=== PATIENT | male | born 1945 | race Caucasian/White ===

== ENCOUNTER 2021-07-24 05:54 | Inpatient (IN) | payer MEDICARE, OTHER ==
[~2021-07-24] VITALS: Ht 172.7 cm; Wt 67.0 kg
[~2021-07-24 05:54] MED LIST: AMLODIPINE BESY10 MG PO; ASPIRIN EC325 MG PO; ATORVASTATIN CA80 MG PO; HYDROCODON-ACE1 EA10 PO; HYDROXYZINE HCL10 MG PO; LISINOPRIL10 MG PO
--- OUTSIDE RECORDS SUMMARY | 2021-07-24 05:56 | XMS ---
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 Young has no Care Guidelines for this patient. EJulia VISIT COUNT (12 MO.) 2 TERE Ferris TOTAL 2 NOTE: Visits indicate total known visits. ED/UCC VISIT TRACKING (12 MO.) 07/24/2021 05:55 [facility] [place] TYPE: Emergency COMPLAINT: - SHOULDER PAIN 06/12/2021 12:51 [facility] [place] TYPE: Emergency COMPLAINT: - POSS STROKE INPATIENT VISIT TRACKING (12 MO.) 06/12/2021 12:52 [facility] [place] TYPE: Observation COMPLAINT: - HYPOTENSION DIAGNOSES: - Personal history of transient ischemic attack (TIA), and cerebral infarction without residual deficits - Hypotension, unspecified - Unspecified abdominal hernia with obstruction, without gangrene - Fecal impaction - Exposure to other specified factors, subsequent encounter - Unspecified fracture of shaft of left fibula, subsequent encounter for closed fracture with routine healing - Metabolic encephalopathy - Allergy status to other drugs, medicaments and biological substances - Allergy status to penicillin - COVID-19 - Unspecified fracture of shaft of left tibia, subsequent encounter for closed fracture with routine healing [email or web address]
--- NOTE | 2021-07-24 13:30 | NUR ---
PT ADMITTED TO [facility] FROM THE ER FOR LLL PNUEMONIA, PT FLAGGED FOR SEPSIS, CULTURES DRAWN PENDING, NEED A SPUTUM SAMPLE, SCD PLACED ON PT, PT CURRENTLY RESIDES AT [facility] WHEEL CHAIR BOUND, L HAND CONTRACTURE, [place] USING WHITE BOARD TO COMMUNICATE , IV FLUIDS HOOKED UP PER ORDER.
--- NOTE | 2021-07-24 14:47 | NUR ---
THIS RN TO TO ROOM TO ASSIST WITH BLOOD CLUTURE DRAW PER PTS PRIMARY RN'S REQUEST. 10ML LAB DRAW WITH 25G BUTTER FLY NEEDLE TO RIGHT FORARM. PT TOLERATED PROCEEDURE WELL. GAUZE AND TAPE APPLIED. IV ABX STARTED (SEE AUG). IF FLUIDS STARTED. PT REQUESTS FOOD. CLEAR LIQUID DIET EXPLAINED. PT REQUESTS JUICE. JUICE GIVEN THICKENED TO MODERATLY THICK. NO COUGH OR THROAT CLEARING NOTED WITH THICKENED LIQUIDS. PT RESTING IN BED WATCHING TV. HEAD OF BED ELEVATED TO 32 DEGREES. BEDR AILS UP. BED ALARM ON. CALL ROSEMARIE MURDOCK. PTS PRIMARY RN UPDATED.
[2021-07-24] MEDS ORDERED: LEVEMIR100 UNIT/1 SUB-Q (14:58)
[2021-07-24] MEDS ORDERED: ASCORBIC ACID500 M3 PO (15:03)
[2021-07-24] MEDS ORDERED: VITAMIN D325 MCG PO (15:05)
[2021-07-24] MEDS ORDERED: ANECREAM5 GM TOP (15:05)
[2021-07-24] MEDS ORDERED: ONE-DAILY MULT1 EAC1 PO (15:06)
[2021-07-24] MEDS ORDERED: LISINOPRIL30 MG PO (15:06)
[2021-07-24] MEDS ORDERED: POLYETHYLENE GL17 GM PO (15:07)
[2021-07-24] MEDS ORDERED: COLACE100 MG PO (15:07)
[2021-07-24] MEDS ORDERED: ARTHRITIS PAIN150 GM TOP (15:08)
[2021-07-24] MEDS ORDERED: GERI-KOT8.6 MG PO (15:08)
[2021-07-24] MEDS ORDERED: HYDROCODON-ACE1 EA10 PO (15:09)
[2021-07-24] MEDS ORDERED: BISACODYL10 MG PR (15:09)
--- NOTE | 2021-07-24 15:10 | NUR ---
PTS HOME MEDICATIONS UPDATED DR WHITE UPDATED REGARDING UPDATED MEDICATIONS. NEW ORDERS PLACED. RESEARCH AND EVALUATION MANAGER AND PTS RN UPDATED.
[2021-07-24] MEDS ORDERED: HYDROXYZINE HCL10 MG PO (16:28)
--- NOTE | 2021-07-24 16:28 | NUR ---
Medications reconciled using MARS from facility
--- NOTE | 2021-07-24 16:30 | NUR ---
RN IN ROOM TO ROUND ON PT, INCONTINENT OF URINE LARGE AMOUNT NEW DEPENDS PLACED, TURNED ON TO L SIDE, NO OTHER NEEDS
--- NOTE | 2021-07-24 18:30 | NUR ---
PT REQUESTING FOOD, DR WHITE ROUNDING ON FLOOR ASKED IF WE COULD UPGRADE DIET, NO TOLERATING CLEARS NO N/V , DR WHITE TO ADJUST ORDERS
--- NOTE | 2021-07-24 19:50 | NUR ---
RECEIVED REPORT FROM DAY SHIFT RN. PATIENT IS RESTING IN BED WATCHING TV. NO FURTHER NEEDS NOTED. CALL LIGHT IN REACH.
--- NOTE | 2021-07-24 21:41 | NUR ---
PT CALLED ASKING FOR HIS LEGS TO BE REPOSITIONED. ALSO ASSISTED PT TO INCREASE VOLUME ON THE TV. PT DENIES FURTHER NEEDS. CALL LIGHT IS CLOSE.
--- NOTE | 2021-07-24 21:58 | NUR ---
PATIENT ASSESMENT COMPLETED. PATIENTS ATTEND CHANGED PATIENT WAS INCONTINENT OF URINE. PATIENTS SCHEDULED MEDICATIONS GIVEN PER ORDER. PATIENT GIVEN PRN TYLENOL PER ORDER FOR PAIN "ALL OVER". PATIENT REPOSITIONED IN BED. PATIENT FED JELLO BY REEL CUTTER. PATIENT PROVIDED SIPS OF WATER. NO FURTHER NEEDS NOTED. CALL LIGHT IN REACH. BED ALARM ON FOR SAFETY.
--- NOTE | 2021-07-24 22:32 | NUR ---
PT CALLED ASKING FOR FOOD. USED WHITEBOARD TO COMMUNICATE. FED PT 1/2 CUP OF JELLO AND SHE SAYS HE IS DONE. PT DENIES FURTHER NEEDS. CALL LIGHT IS CLOSE.
--- NOTE | 2021-07-24 23:35 | NUR ---
PATIENT IS RESTING IN BED WITH EYES CLOSED, RR 27. CALL LIGHT IN REACH.
--- NOTE | 2021-07-25 02:32 | NUR ---
PATIENTS VITALS TAKEN AND RECORDED. PATIENTS ATTEND CHANGED AND JOSHUA CARE COMPLETED. PATIENTS INTAKE AND OUTPUT RECORDED. PRN PAIN CREME APPLIED TO PATIENTS HIP PER ORDER. PATIENTS IV INFUSING PER ORDER. PATIENT PROVIDED WITH DRINKS OF WATER PER ORDER. NO FURTHER NEEDS NOTED. CALL LIGHT IN REACH. BED ALARM ON FOR SAFETY.
--- NOTE | 2021-07-25 06:56 | NUR ---
PATIENTS VITALS TAKEN AND RECORDED. PATIENTS ATTEND AND BEDDING CHANGED PATIENT WAS INCONTINENT OF URINE. INTAKE AND OUPUT REPORTED. PATIENTS IV INFUSING PER ORDER. PATIENT PROVIDED WITH SIPS OF WATER. NO NEEDS NOTED. CALL LIGHT IN REACH. MRSA SWAB SENT
--- NOTE | 2021-07-25 07:23 | NUR ---
REPORT RECEIVED FROM MAXWELL SALAZAR. PT RESTING IN BED ON BACK WITH EYES CLOSED. RESPIRATIONS EVEN AND UNLABORED. HEAD OF BED ELEVATED TO 30 DEGREES. BED RAILS UP. CALL LIGHT WITHIN REACH. BED ALARM ON. PT ALLOWED TO REST.
--- NOTE | 2021-07-25 09:00 | NUR ---
MORNING ASSESSMENT AND MEDICATION DUE. PT FINISHED WITH BREAKFAST. PT REPORTS 7/10 PAIN IN LEFT SHOULDER AND REQUESTS TYELNOL. WRITING BOARD USED TO COMMUNICATE WITH PT THROUGHOUT INTERACTION. PT READS AND ANSWERS QUESTIONS APPROPARITLY. PT ORIENTED TO ALL AND UNDERSTANDS WHY HE IS IN THE HOSPITAL. IV'S ASSSESSED, WNL. NO S/S OF PHELBITIS NOTED. PT ANSWERS QUESTIONS APPROPRAITLY AND FOLLOWS DIRECTIONS WELL WHEN HE READS THE COMMANDS. LEFT ARM REMAINS CONTRACTED, GROSS MOVEMENT SEEN. PT ABLE TO MOVE LEGS OFF THE BED. PT UP TO CHAIR WITH 2 PERSON PIVOT LIFT ASSIST. PT UNABLE TO STAND ON HIS OWN. PT UNABLE TO STRAIGHTEN LEFT ARM. STRAIGHTENS LEFT LEG WITH PASSIVE ASSISTANCE. LUNG SOUNDS CLEAR BUT FOR CRACKELS IN LEFT LOWER LOBS. HEART TONES IRREGULAR. INCONTINANCE CONTINUES. JOSHUA CARE DONE. DEPENDS CHANGED. VITAL SIGNS STABLE. NO ADDITIONAL REQUESTS OR COMPLAINTS. LINENS CHANGED. ICE WATER REFILLED. CALL LIGHT WIHTIN REACH.
--- NOTE | 2021-07-25 10:00 | NUR ---
Call light answered, IV saline locked. Warm blankets provided. Pt has no further needs, call light in reach
--- NOTE | 2021-07-25 10:49 | NUR ---
THIS RN TO ROOM TO CHECK ON PT. PT UP TO CHAIR. LEANING LEFT, SUPPORT WITH PILLOWS. PT RESTING WITH EYES CLOSED, RESPIRATIONS EVEN AND UNALBORED. PT ALLOWED TO REST. CALL LIGHT WITHIN REACH.
--- NOTE | 2021-07-25 11:55 | NUR ---
THIS RN TO ROOM TO CHECK ON PT. PT CALL LIGHT ON. PT REPORTS HE IS FEELING "SICK TO MY STOMACH" PT DECLINES LUNCH. PRN ZOFRAN GIVEN. PT REPOSITIONED IN CHAIR TO UP RIGHT SITTING POSITION. PILLOWS USED FOR SUPPORT. HEEL PROTECTORS APPLIED. BLOOD SUGAR TAKEN, INSULIN GIVEN. PT RESTING WITH EYES CLOSED. RESPIRATIONS EVEN AND UNLABORED. SNACK PROVIDED. ICE WATER REFILLED. NO ADDITIONAL REQUESTS OR COMPLAINTS. CALL LIGHT TARIQ MURDOCK.
--- NOTE | 2021-07-25 12:48 | NUR ---
THIS RN TO ROOM WITH DR. WHITE FOR ROUNDS. PT REMAINS UP TO CHAIR. PT REPORTS 12/12 "ALL OVER" PAIN. SEE MAR FOR MEDICATION GIVEN. PT READJUSTED IN CHAIR. PT REPORTS CONSTIPATION STATING HIS LAST BOWEL MOVEMENT WAS 6 DAYS AGO. NEW ORDERS PLACED BY DR WHITE. NO ADDITIONAL REQUESTS OR COMPLAINTS. CALL LIGHT WITHIN REACH.
--- NOTE | 2021-07-25 15:42 | NUR ---
AFTERNOON ASSESSMENT DUE. PT RESTINGIN BED. PT CURRLED UP INTO A BALL IN BED. HEAD OF BED ELEVATED TO 45 DEGREES AND PT HAS SLID DOWN TO REST. PT RESTING WITH EYES CLOSED. RESPIRATIONS EVEN AND UNALBORED. PT AWAKENS TO LIGHT TOUCH. PT REPORTS 8/10 PAIN IN LEFT SHOULDER. NO MEDICATION DUE AT THIS TIME. HEAT PACK PROVIDED WHICH PT STATES HELPS. PT VERBALIZES UNDERSTANDING TO REMOVE HEAT PACK FROM SHOULDER IF IT FEELS TO HOT. PT ORIENTED TO ALL, ANSWERING QUESTIONS APPROPRIATLY AND INTERACTING WIHT CARES. LEFT ARM REMAINS CONTRACED WITH LEFT LEG OFTEN IN THE BENT POSITION. PT REPOSITIONED IN BED WITH HIPS FLOATED ON PILLOWS. HEAD OF BED ELEVATED TO 25 DEGREES. PT REPORTS FEELING "BETTER" ONCE REPOSITIONED. LUGN SOUNDS REMAIN CLEAR BUT FOR MINOR CRACKELS HEART IN LLL. HERT TONES REMAIN REGULAR. BOWEL TONES HEARD. ABDOMEN REMAINS SOFT. PT DRIFTS BACK TO SLEEP. ICE WATER REFILLED. PT DENIES ADDITIONAL REQUESTS OR COMPLAINTS. CALL LIGHT WITHIN REACH. BED RAILS UP.
--- NOTE | 2021-07-25 16:20 | NUR ---
PT CALL LIGHT ON PT REQUESTS ASSISTNACE WITH REPOSITIONING STATING "MY BUT NEEDS FIXED." PT NOTED TO BE SOILED WITH URINE. DEPENDS CHANGED. JOSHUA CARE DONE. SMALL SMEAR OF STOOL NOTED IN DEPENDS. PT REPOSITIONED TO SEMIFOWLER WITH HEAD OF BED ELEVATED TO 30 DEGREES. PILLOWS REMOVED FROM HIPS. NO ADDITIONAL REQUESTS OR COMLAINTS. CALL LIGHT WITHIN REACH. BED RAILS UP. BED ALARM ON.
--- NOTE | 2021-07-25 16:48 | NUR ---
PT HERE FOR LLL PNEUMONIA. PT UP TO CHAIR WITH 2 PERSON LIFT PIVOT. PT UNABLE TO STAND BUT MAKES EFFORTS TO ASSIST WITH CARES AND MOVEMENTS. PT TOLERATING 60G CARB DIET WITH GOOD APPITITE. PT ALERT AND ORIENTED ALTHOUGH VERY HARD OF HEARING. WHITE BOARD USED THROUGH THIS SHIFT FOR COMMUNICATION. CRACKELS REMAIN IN LEFT LOWER LOBE. IV ABX GIVEN. BLOOD SUGAR CHECKS WITH MEALS AND SLIDING SCALE INSULIN GIVEN. PT REPORTS "ALL OVER" PAIN AND LEFT SHOULDER PAIN. PRN PAIN MEDICATIONS GIVEN, HEAT PACK PROVIDED. PT INCONTINANT, QUANTITY SUFFICIENT. PT USES CALL LIGHT AND MAKES NEEDS KNOWN.
--- NOTE | 2021-07-25 17:19 | NUR ---
THIS RN TO ROOM TO CHECK ON PT. MEDICATION DUE. PT BOOSTED UP IN BED AND HEAD OF BED ELEVATED TO 36 DEGREEES FOR DINNER. PT DECLINES TIME UP TO CHAIR STATING "I'M TOO TIRED FOR THAT." PT REPORTS 8/10 PAIN IN LEFT SHOULDER, SEE MAR FOR MEDICATION GIVEN. PT EATING DINNER. NO ADDITIONAL REQUESTS OR COMPLAINTS. CALL LIGHT WITHIN REACH. BED RAILS UP.
--- NOTE | 2021-07-25 17:40 | NUR ---
PATIENT SITTING UP WATCHING TV. VITALS AND I&O'S CHARTED. ATTENDS CHECKED AND DRY. CALL LIGHT IN REACH. NO FURTHER NEEDS AT THIS TIME.
--- NOTE | 2021-07-25 18:18 | NUR ---
PT CALL LIGHT ON. PT REQUESTS REPOSITIONING. DEPENDS WET AND LOOSE STOOL NOTED. JOSHUA CARE DONE. DEPENDS CHANGED. BARRIER CREAM APPLIED. PT REPOSITIONED TO RIGHT SIDE, SUPPORTED WITH PILLOWS. PT REPORTS FEELING COMFORTABLE. PT STATES "IT DOESN'T BOTHER ME AT ALL" WHEN ASKED ABOUT HIS LEFT SHOULDER AND RATES PAIN AT 6/10. NO ADDITIONAL REQUESTS OR COMPLAINTS. CALL LIGHT WITHIN REACH. BED RAILS UP. BED ALARM ON. HEAD OF BED ELEVATED TO [address] IN PLACE.
--- NOTE | 2021-07-25 19:40 | NUR ---
BEDSIDE RPEORT FROM SALLY SALAZAR, PT HAS HAD GOOD DAY HE IS HEAVY 2 PERSON ASSIST TO PIVOT TRANSFER. PT ASKED TO GET REPOSITIONED. ASSISTED BY STAFF X2.
--- NOTE | 2021-07-25 20:55 | NUR ---
ASSISTED GLOBAL COMPENSATION DIRECTORTROY CH. CHANGED PATIENT'S INCONTINENT ATTENDS. APPLIED BARRIER CREAM. PATIENT REPOSITIONED. BED ALARM ON. SCD'S ON.
--- NOTE | 2021-07-25 21:12 | NUR ---
PATIENTS ATTEND CHANGED HE WAS INCONTINENT OF URINE AND HAD SMALL BM. PATIENT REPOSITIONED IN BED. PRN PAIN CREAM APPLIED TO PATIENTS LEFT SHOULDER PER PATIENT REQUEST. PATIENT PROVIDED WITH SIPS OF WATER. PATIENT DENIES ANY FURTHER NEEDS AT THIS TIME. CALL LIGHT IN REACH. SCDS IN USE AND HEEL PROTECTORS IN PLACE. BED ALARM ON FOR SAFETY.
--- NOTE | 2021-07-25 22:43 | NUR ---
ROUNDING PT REQUESTED TYLENOL FOR LEFT SHOULDER PAIN 12/12. PT ALERT AND ORIENTED, VERY HARD OF HEARING. PT RESTING IN BED WATCHING TV. NO OTHER REQUESTS OR CONCERNS AT THIS TIME
--- NOTE | 2021-07-26 00:41 | NUR ---
PT CALLED NURSES STATION TO REQUEST TO HAVE VOLUME TURNED UP ON HIS TV. TV VOLUME IS ALREADY ON MAX VOLUME. PT SAID HE CANT HEAR IT. THIS RN SET HAND HELD CALL LIGHT SPEAKER BY PT EAR, HE SAID HE COULD HEAR IT THEN. NO OTHER REQUESTS AT THIS TIME.
--- NOTE | 2021-07-26 02:12 | NUR ---
CALL LIGHT ANSWERED. PATIENT REPOSITIONED. NO FURTHER NEEDS AT THIS TIME. BED ALARM ON.
--- NOTE | 2021-07-26 05:28 | NUR ---
PT AM ASSESSMENT COMPLETE, PT HAD LARGE INCONT. REQUIRED FULL BED CHANGE. PT TOLERATED ACTIIVTY OF BED MOBILITY WELL ASSISTING WITH TURNING. V/S, I/O COMPLETE. FRESH WATER PROVIDED AND WARM BLANKET PT HAS NO FURTHER REQUESTS OR CONCERNS
--- NOTE | 2021-07-26 05:33 | NUR ---
v/s and i&o's done. this bike shop manager and daiana aleman changed bed linen. changed incontinent attends. patient repositioned. bed alarm on. call light in hand.
--- NOTE | 2021-07-26 06:00 | NUR ---
PT HAS HAD MULTIPLE INCONT OF URINE OVER SHIFT WITH ONE BM. HE IS EXTREMELY HARD OF HEARING, HE HAS REMAINDED AWAKE MOST OF SHIFT. HE REPORTS PAIN AT LEFT SHOULDER, ASPERCREAM AND TYLENOL ADMNISTERED PRN OVER SHIFT. HE HAS BEEN WATCHING TV MOST OF SHIFT.
--- NOTE | 2021-07-26 06:40 | NUR ---
PATIENT CALLED. PATIENT STATED "REARRANGED MY BUT". DONE. BED ALARM ON.
--- NOTE | 2021-07-26 07:39 | NUR ---
REPORT RECIEVED FROM NIGHT NURSE MARIE MCELROY
--- NOTE | 2021-07-26 08:01 | NUR ---
MORNING ASSESSMENT DONE, 0800 MEDICATIONS GIVEN. X2 RIGHT FOREARM IV'S FLUSHED AND INTACT. PATIENT IS RESTING ON LEFT SIDE AT THIS TIME. BLOOD GLUCOSE WITHIN NORMAL LIMITS THIS MORNING. LUNGS ARE DIM IN BASES, PATIENT IS ON ROOM AIR, OCCASIONAL NON-PRODUCTIVE COUGH. PATIENT BACK TO SLEEP, BIODIESEL PRODUCT MANAGER REPORTED THAT HE WAS AWAKE ALL NIGHT.
--- NOTE | 2021-07-26 09:17 | NUR ---
Call from [facility] requesting update. Faxed H&P. Unsure of discharge date and let them know I will check with Dr. Merino at 0930 meeting today.
--- NOTE | 2021-07-26 10:14 | NUR ---
MORNING MEDICATIONS AND VITALS DONE. PATIENT IS SITTING UP IN BED TO EAT BREAKFAST. IV ROCEPHIN INFUSING, PO ZITHROMAX GIVEN WITH FOOD.
--- NOTE | 2021-07-26 10:44 | NUR ---
PATIENT SITTING UP IN BED WATCHING TV AT THIS TIME. VITALS AND I&O'S CHARTED. ATTENDS CHECKED AND CLEAN. CALL LIGHT IN REACH. BED ALARM ON. NO FURTHER NEEDS AT THIS TIME.
[2021-07-26] MEDS ORDERED: ATORVASTATIN CA80 MG PO (10:56)
[2021-07-26] MEDS ORDERED: HYDROCODON-ACE1 EA10 PO (10:57)
[2021-07-26] MEDS ORDERED: LO-DOSE ASPIRIN81 MG PO (10:57)
[2021-07-26] MEDS ORDERED: CLARITIN10 MG PO (10:58)
[2021-07-26] MEDS ORDERED: CEFPODOXIME PR200 MG PO (10:58)
[2021-07-26] MEDS ORDERED: LEVEMIR100 UNIT/1 SUB-Q (11:00)
--- NOTE | 2021-07-26 11:00 | NUR ---
Received orders from Dr Merino for pt to return to [facility]. Received text from Leanna from [facility] asking if pt is returning as the family called her. Notified I have just faxed orders and I am attempting to contact the [facility] van. I am not able to reach anyone, but will plan for dc at 1pm. Asked if she can put his wc out for grape picker. Contacted the taxi service and the wc van is closed today. They get the wc van and provide courtesy transports for the hospital only. Will transport pt at 1pm and grape picker his wc.
--- NOTE | 2021-07-26 11:24 | NUR ---
IV X2 TO RIGHT ARM REMOVED, CATHETER TIP NOTED TO BE INTACT.
--- NOTE | 2021-07-26 12:25 | NUR ---
REPORT CALLED TO VIENNA NURSEESSENCE.
--- NOTE | 2021-07-26 12:46 | NUR ---
Orders placed in envelope and taken to the nurses station. Staff notified pt will transport at 1 pm.
--- NOTE | 2021-07-26 13:01 | NUR ---
PT AWAKE IN BED. THIS GENERAL FARMER AND GENERAL FARMER СЕРГЕЙ IN ROOM TO GET PT READY TO DC
== END 2021-07-26 13:20 | disposition home or self-care (01) | DRG 871 ==
LOC: ED 05:54 → MS 05:56
PROVIDERS: ADMIT Internal Medicine; ATTEND Internal Medicine
DX: A41.50 Gram-negative sepsis, unspecified (principal); J18.9 Pneumonia, unspecified organism; E87.2 Acidosis; R65.20 Severe sepsis without septic shock; K59.00 Constipation, unspecified; I10 Essential (primary) hypertension; E78.5 Hyperlipidemia, unspecified; Z86.73 Personal history of transient ischemic attack (TIA), and cerebral infarction without residual deficits; Z66 Do not resuscitate; Z88.0 Allergy status to penicillin; Z88.8 Allergy status to other drugs, medicaments and biological substances; Z79.899 Other long term (current) drug therapy; Z79.82 Long term (current) use of aspirin; Z20.822 Contact with and (suspected) exposure to COVID-19
CPT/HCPCS: 36415; 51701; 71045; 74177; 80053; 81001; 83036; 83605; 83690; 84484; 85025; 87040; 87070; 87205; 99285-25; A9270; C9113; C9803; J0456; J0696; J1815; J2405; J7030; J7040; J7060; J7121; U0003